=== PATIENT | male | born 1950 | race Caucasian/White ===

== ENCOUNTER 2019-03-23 13:55 | Day surgery (SDC) | payer OTHER ==
[~2019-03-23] VITALS: Ht 167.6 cm; Wt 166.6 kg
[~2019-03-23 13:55] MED LIST: ACET500 PO; ALLER-TEC D 5-1 EACH PO; ASPI81EC PO; CETI5 PO; FISH1000 PO; FLUT1DIS2 INH; HYDACE5 PO; MULVITMIND PO; Metamucil Plus1 EACH PO; OMEG1CAP30 PO; ONDA4ODT MM; ONE DAILY MEN'1 EAC1 PO; PANT40 PO; PHENY100ER PO; TOCO400 PO; TRAM50 PO; VITAMINS
== END 2019-03-23 16:53 | disposition home or self-care (01) ==
LOC: ORSCSDS 13:55
PROVIDERS: Internal Medicine Gastroenterology
PROC: 0DBM8ZX Excision of Descending Colon, Via Natural or Artificial Opening Endoscopic, Diagnostic (ICD-10-PCS; principal; 2019-03-23 15:00)
PROC: 0DBK8ZX Excision of Ascending Colon, Via Natural or Artificial Opening Endoscopic, Diagnostic (ICD-10-PCS; principal; 2019-03-23 15:00)
DX: Z12.11 Encounter for screening for malignant neoplasm of colon (principal); D12.2 Benign neoplasm of ascending colon; D12.4 Benign neoplasm of descending colon; D37.4 Neoplasm of uncertain behavior of colon; K57.30 Diverticulosis of large intestine without perforation or abscess without bleeding; K64.8 Other hemorrhoids; R56.9 Unspecified convulsions; K21.9 Gastro-esophageal reflux disease without esophagitis; G47.33 Obstructive sleep apnea (adult) (pediatric); Z79.899 Other long term (current) drug therapy
CPT/HCPCS: 88305; J2250; J2704; J7120

== ENCOUNTER → 2021-03-24 | Outpatient (CLI) | payer OTHER | END | disposition home or self-care (01) | LOC: LAB SHORT 07:25 | DX: D48.5 Neoplasm of uncertain behavior of skin (principal) | CPT/HCPCS: 88305 ==

== ENCOUNTER → 2022-09-25 | Outpatient (CLI) | payer OTHER ==
[2022-09-28 10:23] LABS: Stool Occult Bld Immuno 1 Negative (NEGATIVE)
== END | disposition home or self-care (01) ==
LOC: LAB SHORT 15:28 → LAB 15:28
PROVIDERS: Internal Medicine
DX: D53.9 Nutritional anemia, unspecified (principal)
CPT/HCPCS: G0328

== ENCOUNTER 2023-08-25 08:19 | Day surgery (SDC) | payer OTHER ==
[~2023-08-25] VITALS: Ht 170.2 cm; Wt 75.6 kg
[2023-08-25 10:36] VITALS: BP 103/72
== END 2023-08-25 10:50 | disposition home or self-care (01) ==
LOC: ORSCSDS 08:19
PROVIDERS: Internal Medicine Gastroenterology
PROC: 0DBK8ZX Excision of Ascending Colon, Via Natural or Artificial Opening Endoscopic, Diagnostic (ICD-10-PCS; principal; 2023-08-25 09:30)
PROC: 0DBL8ZX Excision of Transverse Colon, Via Natural or Artificial Opening Endoscopic, Diagnostic (ICD-10-PCS; principal; 2023-08-25 09:30)
DX: Z12.11 Encounter for screening for malignant neoplasm of colon (principal); Z86.010 Personal history of colon polyps; D12.2 Benign neoplasm of ascending colon; D12.3 Benign neoplasm of transverse colon; K57.30 Diverticulosis of large intestine without perforation or abscess without bleeding; G47.33 Obstructive sleep apnea (adult) (pediatric); Z79.899 Other long term (current) drug therapy
CPT/HCPCS: 88305; 88312; J2405; J2704; J7120